=== PATIENT | female | born 1995 | race Hispanic/Latino ===

== ENCOUNTER 2021-03-20 09:20 | Outpatient (CLI) | payer OTHER, SELFPAY ==
[2021-03-20 10:49] LABS: Hematocrit 34.2 % (37.0-47.0); Hemoglobin 11.2 g/dL (12.0-15.0); Mean Corpuscular HGB Conc 32.7 g/dl (32-36); Mean Corpuscular Hemoglobin 28.2 pg (26-34); Mean Corpuscular Volume 86.1 fl (80-100); Mean Platelet Volume 9.2 fl (7.4-10.4); Platelet Count Result 184 k/mm3 (150-375); Red Blood Count 3.97 M/mm3 (4.2-5.4); Red Cell Distribution Width 12.7 % (11.5-14.5); White Blood Count 8.6 K/mm3 (4.5-10.0)
[2021-03-20 11:11] LABS: Glucose 1 Hour PP 50gm Dose 134 mg/dL
[2021-03-20 12:01] LABS: HIV 1/2 Ab P24 Ag Result Negative (Negative)
== END 2021-03-20 09:21 | disposition home or self-care (01) ==
PROVIDERS: PCP Family Medicine; Visit Provider Obstetrics & Gynecology
DX: Z34.02 Encounter for supervision of normal first pregnancy, second trimester (principal)
CPT/HCPCS: 36415; 82947; 85027; 86703; G0432

== ENCOUNTER 2021-05-18 11:31 | Outpatient (RCR) | payer OTHER, SELFPAY ==
--- NOTE | ~2021-05-18 | US_ITS ---
EXAMINATION: US OB limited w BPP DATE: 05/18/2021 12:48 INDICATION: Decreased movement during third trimester TECHNIQUE: Real-time pelvic ultrasound was performed. The interpreting radiologist was not present fo r the study. COMPARISON: None. FINDINGS: There is a single living fetus in vertex presentation. The placenta is posterior. heart rate is 127 beats per minute (bpm). The amniotic fluid index is 9.5 cm which is normal (normal range: 7.3 cm to 23.9 cm). Biophysical profile performed by the technologist: breathing (30 sec sustained breathing in 30 minutes): 2 out of 2 movement (3 gross body movements in 30 minutes): 2 out of 2 tone (one episode of gkthjsb-oazastqbz-bpbcthp limb movement): 2 out of 2 Amniotic fluid pocket (2 cm): 2 out of 2 Total score: 8 out of 8 IMPRESSION: 1. Single living fetus in vertex presentation. 2. Biophysical profile 8 out of 8. Reviewed, dictated and finalized at location B.
[2021-05-18 13:31] VITALS: BP 94/60; PULSE 80
== END 2021-06-05 07:53 | disposition home or self-care (01) ==
LOC: ANHOBOP 11:31
PROVIDERS: PCP Family Medicine; Visit Provider Obstetrics & Gynecology
DX: O36.8130 Decreased fetal movements, third trimester, not applicable or unspecified (principal); Z3A.38 38 weeks gestation of pregnancy
CPT/HCPCS: 59025; 76815; 76819

== ENCOUNTER 2021-06-04 16:00 | Inpatient (IN) | payer OTHER, SELFPAY ==
[2021-06-04] VITALS (9 sets, daily range): BP systolic 100–118; BP diastolic 63–74; PULSE 68–96; TEMP 36.6–37.1; BMI 29.1
[2021-06-04 16:45] LABS: Basophils Percent Auto 0.3 % (0.2-1.2); Eosinophils Percent Auto 0.2 % (0-4.4); Hematocrit 36.3 % (37.0-47.0); Hemoglobin 12.1 g/dL (12.0-15.0); Immature Granulocyte Absolute 0.04 K/mm3 (0.00-0.031); Immature Granulocyte Percent A 0.5 % (0-0.5); Lymphocytes Absolute Auto 1.92 K/mm3 (0.9-3.2); Lymphocytes Percent Auto 21.7 % (18.3-44.2); Mean Corpuscular HGB Conc 33.3 g/dl (32-36); Mean Corpuscular Hemoglobin 27.8 pg (26-34); Mean Corpuscular Volume 83.4 fl (80-100); Mean Platelet Volume 10.3 fl (7.4-10.4); Monocytes Absolute Auto 0.6 K/mm3 (0.1-0.6); Neutrophils Absolute Auto 6.2 K/mm3 (1.3-6.7); Neutrophils Percent Auto 70.3 % (45.5-73.1); Platelet Count Result 227 k/mm3 (150-375); Red Blood Count 4.35 M/mm3 (4.2-5.4); Red Cell Distribution Width 13.1 % (11.5-14.5); White Blood Count 8.8 K/mm3 (4.5-10.0)
[2021-06-04] MEDS: LACTATED RINGERS 1,000 ML 125 ML IV CONT (16:49)
[2021-06-04] MEDS: AMPICILLIN 2 GM/NS 100 ML 2 GM/100 ML BAG IVPB (16:52)
[2021-06-04] MEDS: DINOPROSTONE 10 MG VAG INSERT VAGINAL (17:05)
--- NOTE | 2021-06-04 17:10 | LDADM ---
This patient, Cris Wong, was admitted to Labor/Delivery/Recovery 108 on 06/04/21 at 16:00. Plans for labor, pain management and were discussed with patient. Patient/family oriented to hospital policies and general routines including ID bracelet, bed and alarms, visiting hours, pain management, procedures, bathroom and other care routines, personal items, smoking policy, room service/diet and guest tray routines, security routines, and visiting hours. Patient/Family are encouraged to report perceived risks to care and to ask questions if they do not understand what they are told or what they should do. See OBIX for further documentation.
[2021-06-04] MEDS: AMPICILLIN 1 GM/NS 50 ML 1 GM/50 ML BAG IVPB (20:49)
--- NOTE | 2021-06-04 21:19 | PM.IMHP ---
H&P: HPI History of Present Illness Date/Time: 06/04/21 21:10 Cris is a 25yo @ 40.6wks (RADHA 05/29/21) who presents for induction of labor. She reports good movement. Irregular contractions/back pains. No vaginal bleeding or leakage of fluid. She has had regular care. Her is complicated by: - GBS positive - Mild iron def anemia on iron daily Chief Complaint: induction of labor Review of Systems Review of Systems: All systems reviewed & are unremarkable except as noted in HPI and below (HPI) [facility]LY [facility] Family History Family History Mother Patient's mother is in good health Father Family history of diabetes mellitus in first degree relative Patient's father is in good health Hypertension Fatty liver Gout Other Diabetes mellitus Grandparent Dementia Social History Social History Years smoked: 1 Smoking status: Former smoker Second hand tobacco smoke exposure: No Smoking end date: 10/07/18 Alcohol intake: current Drinks per week: 4 Substance use: never Substance use type: does not use Spiritual care concerns: No Meds Home Medications and Allergies Home Medications Medication Instructions Recorded Confirmed Type PNV cmb#95-ferrous fumarate-FA 1 tablet PO DAILY 06/04/21 06/04/21 History [] doxylamine succinate [Unisom 25 mg PO HS 06/04/21 06/04/21 History (doxylamine)] pyridoxine (vitamin B6) [Vitamin 25 mg PO DAILY 06/04/21 06/04/21 History B-6] Allergies Allergy/AdvReac Type Severity Reaction Status Date / Time No Known Allergies Allergy Verified 05/17/21 14:37 Vital Signs Vital Signs - 24 hr 06/04/21 16:24 06/04/21 16:45 06/04/21 17:01 Temperature 37.1 C Pulse Rate 93 96 Blood Pressure 117/69 118/74 06/04/21 17:30 06/04/21 18:00 06/04/21 18:30 Temperature Pulse Rate 74 76 68 Blood Pressure 109/63 101/68 103/68 06/04/21 19:00 06/04/21 20:50 Temperature 36.6 C Pulse Rate 69 Blood Pressure 112/65 Exam Const: General: cooperative, healthy appearing, comfortable and no acute distress Resp: Effort & Inspection: normal respiratory effort and able to speak in complete sentences Cardio: Rate: regular rate GI: GI Palp: No abdominal tenderness and Yes Soft to palpation : Other: FHT's: 130's/mod filemon/ + accels/ no decels - cat 1 TOCO: irregular ctx's Cervix: 60/-2 Membranes: intact Presentation: cephalic Skin: General skin exam: normal color Neuro: General: patient oriented x3 Extrem: General: normal to inspection Psych: Appearance: grossly normal Affect: normal affect Attitude: cooperative H&P: Results Labs Labs: Short CBC 06/04/21 Range/Units 16:16 WBC 8.8 (4.5-10.0) K/mm3 Hgb 12.1 (12.0-15.0) g/dL Hct 36.3 L (37.0-47.0) % Plt Count 227 (150-375) k/mm3 Assessment and Plan Assessment and plan (1) Encounter for induction of labor: Code(s): Z34.90 - Encounter for supervision of normal , unspecified, unspecified trimester Status: Acute (2) : Qualifiers: Weeks of gestation: 40 weeks Qualified Code(s): Z3A.40 - 40 weeks gestation of Code(s): Z34.90 - Encounter for supervision of normal , unspecified, unspecified trimester Status: Acute Additional Plan - Admit to L&D for IOL - Cervidil cervical ripening; plan for pitocin in the AM - GBS ppx - Continuous monitoring; currently reassuring - Anesthesia consult PRN pain
--- NOTE | 2021-06-04 21:19 | WPDHPUPDATE1 ---
History and Physical Update Update Date/Time: 06/04/21 21:19 History and Physical has been reviewed, including an updated exam of the patient. There are NO changes in the patient's condition. Risks, benefits, and alternatives have been discussed and questions answered. Patient agrees to proceed with procedure.
[2021-06-05] VITALS (105 sets, daily range): BP systolic 86–146; BP diastolic 49–115; PULSE 63–123; RESP 16–18; TEMP 36.6–36.9; O2SAT 91–100
[2021-06-05] MEDS: LACTATED RINGERS 1,000 ML 125 ML IV CONT (00:54)
[2021-06-05] MEDS: AMPICILLIN 1 GM/NS 50 ML 1 GM/50 ML BAG IVPB ×2 (00:55→06:31)
[2021-06-05] MEDS: fentaNYL CITRATE INJ (*CRX) 100 MCG/2 ML VIAL 50 MCG IV PUSH ×2 (04:06→05:37)
--- NOTE | 2021-06-05 05:33 | WPDANESEPP ---
Anes - Eval Pre Procedure Procedure: Labor epidural Date/Time: 06/05/21 05:33 Surgeon: Jean Preop Diagnosis: Abd pain with contractions Pre Op Diagnosis: IOL Patient Data Age: 25 Gender: F Height: 1.55 m Weight: 70 kg Last Vital Signs Temp 98 F 06/05/21 00:56 Pulse 81 06/05/21 05:30 BP 123/81 06/05/21 05:30 Allergies Allergy/AdvReac Type Severity Reaction Status Date / Time No Known Allergies Allergy Verified 05/17/21 14:37 Home Medications Medication Instructions Recorded Confirmed Type PNV cmb#95-ferrous fumarate-FA 1 tablet PO DAILY 06/04/21 06/04/21 History [] doxylamine succinate [Unisom 25 mg PO HS 06/04/21 06/04/21 History (doxylamine)] pyridoxine (vitamin B6) [Vitamin 25 mg PO DAILY 06/04/21 06/04/21 History B-6] Laboratory Tests 06/04/21 06/04/21 06/04/21 16:16 16:16 16:16 WBC 8.8 K/mm3 K/mm3 (4.5-10.0) RBC 4.35 M/mm3 M/mm3 (4.2-5.4) Hgb 12.1 g/dL g/dL (12.0-15.0) Hct 36.3 % L % (37.0-47.0) MCV 83.4 fl fl (80-100) MCH 27.8 pg pg (26-34) MCHC 33.3 g/dl g/dl (32-36) RDW 13.1 % % (11.5-14.5) Plt Count 227 k/mm3 k/mm3 (150-375) MPV 10.3 fl fl (7.4-10.4) Immature Gran % (Auto) 0.5 % % (0-0.5) Neut % (Auto) 70.3 % % (45.5-73.1) Lymph % (Auto) 21.7 % % (18.3-44.2) Sebastian % (Auto) 7.0 % % (2.6-8.5) Eos % (Auto) 0.2 % % (0-4.4) Baso % (Auto) 0.3 % % (0.2-1.2) Lymph # (Auto) 1.92 K/mm3 K/mm3 (0.9-3.2) Sebastian # (Auto) 0.6 K/mm3 K/mm3 (0.1-0.6) Eos # (Auto) 0.0 K/mm3 K/mm3 (0-0.3) Baso # (Auto) 0.0 K/mm3 K/mm3 (0.0-0.1) Abs Immat Gran (auto) 0.04 K/mm3 H K/mm3 (0.00-0.031) Absolute Neuts (auto) 6.2 K/mm3 K/mm3 (1.3-6.7) Absolute Nucleated RBC 0.0 K/mm3 K/mm3 (0.0-0.012) Nucleated RBC % 0.0 % % (0.0-0.2) RPR Pending Blood Type O Positive Antibody Screen Negative Patient hx anesthesia problems: none Family hx anesthesia problems: none PMFSH Past Medical History Medical History Diverticulosis History of smoking Over weight Family History Family History Mother Patient's mother is in good health Father Family history of diabetes mellitus in first degree relative Patient's father is in good health Hypertension Fatty liver Gout Other Diabetes mellitus Grandparent Dementia Social History Social History Years smoked: 1 Smoking status: Former smoker Second hand tobacco smoke exposure: No Smoking end date: 10/07/18 Alcohol intake: current Drinks per week: 4 Substance use: never Substance use type: does not use Spiritual care concerns: No Exam Day of Procedure 06/05/21 05:33 Patient weight: overweight Airway: Mallampati scale class II Neurological: alert and oriented
[2021-06-05] MEDS: OXYTOCIN 30 UNITS/NS 500 ML 30 UNITS/500 ML BAG 6 UNITS IV CONT (06:31)
--- NOTE | 2021-06-05 06:49 | PM.OBPNLAB ---
Pain Control Date/time seen: 06/05/21 06:48 Pain control: epidural Pelvic Exam Dilation (cm): 5 Effacement (%): 80 station: -1 Amniotic membrane status: Ruptured (clear; AROM [id number]) Contractions Monitor mode: External Contraction frequency: 2 Contraction pattern: Regular Status status: Category l Assessment and Plan Pitocin rate (mU/min): 2 Assessment: induction ongoing Plan: continuous present management Comments: - GBS ppx
[2021-06-05 09:57] LABS: Rapid Plasma Reagin Non-Reactive (NonReactive)
--- NOTE | 2021-06-05 10:08 | P.PCNOB_ITS ---
OB - Delivery Note Procedure Delivery date: 06/05/21 events: Labor Induction Induction method: per cervidil protocol Delivery augmentation: rupture of membranes and pitocin Delivery monitor: external FHT and external uterine Route of delivery: Laceration Description: Perineal - 2nd Degree Delivery repair: vicryl Specimen: No Quantitative Blood Loss (ml): 250 Anesthesia type: Epidural Disposition: floor [place] Baby Date of : 06/05/21 Time of : 09:50 Weeks of gestation at delivery: 41 gender: Male Weight (pounds): 6 Weight (ounces): 2 presentation: vertex position: Right Occiput Anterior Placenta delivery description: Expressed cord vessel description: 3 Vessels, Nuchal Cord, Loose and Reduced score one minute: 9 score five minutes: 9 Narrative: Cris rapidly progressed to complete dilation with strong desire to push. She pushed with good maternal effort for approximately 20 minutes. She delivered the head over intact perineum. A loose nuchal cord was palpated and reduced. She easily delivered the 's shoulders and body without complications. The infant was immediately placed skin to skin. He had spontaneous cry. The umbilical cord was delayed, but then clamped and cut. With Pitocin running and gentle downward traction on the cord, the placenta delivered without complications. Bimanual massage was performed and good fundal tone was noted with minimal bleeding. The patient was examined and a second- degree perineal laceration was noted. The second-degree laceration was repaired in the normal fashion using 2-0 Vicryl. Good hemostasis and fundal tone were noted. Sponge, lap, instrument, needle counts were correct at the end of the procedure. Mom and baby were left bonding in the birthing suite in stable condition.
[2021-06-05] MEDS: OXYTOCIN 30 UNITS/NS 500 ML 30 UNITS/500 ML BAG 125 UNITS IV CONT (10:27)
[2021-06-05] MEDS: BENZOCAINE 20% AER SPR (*SP) 56 GM CAN 1 SPRAY TOPICAL (12:21)
[2021-06-05] MEDS: WITCH HAZEL 40 PADS 1 PAD TOPICAL (12:21)
--- NOTE | 2021-06-05 13:45 | PC.NURSE ---
Mother called out for assist with feeding, reporting eagerly fed for first feeding. Mother reports tenderness with feeding more to left than right. Mother has had breast augmentation surgery for larger breasts with the periareolar surgery. Discussed how this may impact milk transfer. Mother has issues with healing on left breast, scar tissue below areola and area is misshaped. Mother states she plan is to breast and bottle feed. Suggested mother breastfeed on right and bottle feed if not satisfied and when infant is to feed on left. Infant is able to freely thrust tongue past gum ridge and flange both lips. Skin is intact on both nipples, no redness and bruising noted. Reviewed infant feeding cues, frequencies, duration of feedings, feeding elimination flow sheet, and signs of adequate intake. Demonstrated stimulation techniques to wake infant for feeding. Assisted with to breast. Reviewed positioning/alignment in cross cradle, holding breast in ?U? hold and guided asymmetrical latch on. Discussed rational for each. able to latch correctly. Reviewed signs of a correct latch, effective nursing and suck swallow ratio. nursed eagerly, with steady draws and occasional swallowing noted. Reviewed the difference of effective vs ineffective nursing. Suggested mother stimulate while feeding to increase stimulation, increase intake and to assist with maintaining deep latch. Infant would slip to shallow latch, mother reports tenderness. Demonstrated how to adjust latch more deeply while feeding. Mother reports she can feel change in latch and has no tenderness. Nipple care reviewed of lanolin after feedings, warm compresses as needed.
--- NOTE | 2021-06-05 14:01 | PC.NURSE ---
1224 Pt admitted to room 286 per wheelchair from labor and delivery after spontaneous vaginal delivery of viable male infant at [address] Pena. Mother is a and is choosing to breast feed . /FOB present; couple oriented to room, staffing and procedures; admission folder reviewed, including Mother Baby Guide. Pt's VSS and assessment WNL.
[2021-06-05] MEDS: IBUPROFEN 600 MG TABLET PO ×2 (15:37→23:55)
[2021-06-05] MEDS: TETANUS,DIPHTHERIA,AC PERTUSSIS ADULT (0.5 ML) BOOSTRIX IM (15:39)
[2021-06-05] MEDS: LANOLIN (LANSINOH) 7.5 GM CREAM 1 APPLIC TOPICAL (15:42)
--- NOTE | 2021-06-05 19:25 | PC.NURSE ---
1700 nurse present to assist with baby's feeding at this time; mother asked if she could pump and bottle feed now. She reports severe pain in her entire R breast during the last feeding, and desires to now, not put infant to breast, only pump and bottle feed; nurse agreed. Mother will be set up with breast pump; she and FOB shown paced bottle feeding, and fed infant Enfamil without problems.
[2021-06-05] MEDS: ACETAMINOPHEN 325 MG TABLET 650 MG PO (20:52)
[2021-06-06] VITALS: BP 99/66; PULSE 86; RESP 16; TEMP 36.4; O2SAT 99
[2021-06-06 04:00] VITALS: BP 102/67; PULSE 64; RESP 16; TEMP 36.4; O2SAT 99
[2021-06-06 04:50] LABS: Hematocrit 31.9 % (37.0-47.0); Hemoglobin 10.4 g/dL (12.0-15.0)
[2021-06-06 07:30] VITALS: BP 111/66; PULSE 70; RESP 18; TEMP 36.3
--- NOTE | 2021-06-06 10:08 | WPDANLDPN2 ---
Anes-Prog Note L&D Date/Time: 06/06/21 10:08 Comfortable throughout: labor and delivery Neuraxial method: epidural Epidural/Spinal procedure site: clean & non-tender Neuro status: Neuro function grossly intact. Cardiovascular status: normal Respiratory status: normal Airway patency: baseline Mental status: baseline Post-Op hydration status: normal Vital Signs: Last Vital Signs Temp 36.3 C L 06/06/21 07:30 Pulse 70 06/06/21 07:30 Resp 18 06/06/21 07:30 BP 111/66 06/06/21 07:30 Pulse Ox 99 06/06/21 04:00 Pain score (VAS): 0 Post-procedural complaints: none Patient feedback: Patient satisfied with anesthetic care.
--- NOTE | 2021-06-06 12:30 | PM.OBPNVD ---
OB - PN: Subj Subjective Date/time seen: 06/06/21 07:30 PPD#1 Cris reports doing well today. She reports her pain is tolerable with the PO meds. 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 She has tolerated regular diet. She has voided and passed gas. She as ambulated w/o symptoms of anemia. She is pumping/bottle feeding. She would like her son circumcised. She denies fever, chills, CP, SOB, [place], vision changes, palpitations, dizziness, N/v. She would like to go home tomorrow. OB - PN: Obj Data Labs CBC & Chem 7: 06/06/21 04:21 Labs: Laboratory Results - last 24 hr 06/06/21 04:21 Hgb 10.4 L Hct 31.9 L OB - PN A/P Assessment and Plan (1) Spontaneous vaginal delivery: Code(s): O80 - Encounter for full-term uncomplicated delivery Status: Acute Plan day: 1 Plan: routine care and discharge home (tomorrow AM) Comments: - pelvic rest x 4wks - take meds as prescribed - ER return precautions discussed: fever, n/v/abd pain, bleeding, htn - f/u in 4wks. Time Spent With Patient Time: Total time spent is greater than 50% in coordination of care (as documented) at patient's floor/unit and/or counseling patient: Review of Systems Review of Systems: All systems reviewed & are unremarkable except as noted in HPI and below (HPI) Exam Const: General: cooperative, healthy appearing, comfortable and no acute distress Resp: Effort & Inspection: normal respiratory effort and able to speak in complete sentences Auscultation: clear to auscultation bilaterally Cardio: Rate: regular rate GI: Inspection: normal to inspection and non-distended GI Palp: No abdominal tenderness and Yes Soft to palpation Auscultation: normal bowel sounds : Other: fundus firm below umbilicus Skin: General skin exam: normal color Neuro: General: patient oriented x3 Extrem: General: normal to inspection Psych: Appearance: grossly normal Affect: normal affect Attitude: cooperative
[2021-06-06] MEDS: IBUPROFEN 600 MG TABLET PO ×2 (12:47→20:10)
--- NOTE | 2021-06-06 17:51 | PC.NURSE ---
Patient and FOB viewed the discharge video Mother & Baby Care, The First Two Weeks , on their IPAD. Patient was given the opportunity and encouraged to ask questions. Patient verbalized understanding of information shared and has been given the mother/baby guide for home reference.
[2021-06-06 19:11] VITALS: BP 110/72; PULSE 72; RESP 16; TEMP 36.3; O2SAT 100
[2021-06-07 08:30] VITALS: BP 98/86; PULSE 80; RESP 16; TEMP 36.6; O2SAT 100
[2021-06-07] MEDS: DOCUSATE SODIUM 100 MG CAPSULE PO (09:19)
[2021-06-07] MEDS: MULTIVIT/MIN/PREN/FOL AC/IRON TABLET 1 TAB PO (09:19)
--- NOTE | 2021-06-07 11:30 | PC.NURSE ---
Mother reports she continues to pump without difficulties or discomfort. Mother has a double electric pump for home use and plans to pump and bottle feed formula EBM of as much as desires. Reviewed breast pump care and usage, pumping schedule, nipple care, and collection and storage of breast milk. Encouraged [id number], breast massage and manual expression to stimulate supply. Pumping log provided and reviewed. Assessed patient for correct flange size, placement and draw. Patient verbalizes and demonstrates understanding of instructions.
[2021-06-09 10:57] VITALS: BP 105/74; PULSE 88; RESP 16; TEMP 37.1; O2SAT 99
--- NOTE | 2021-06-20 16:07 | PM.OBDSVD ---
DS: Admitting Diagnosis Discharge Date 06/07/21 Admitting Diagnosis induction of labor DS: Discharge Diagnosis Discharge Diagnosis (1) Encounter for induction of labor: Code(s): Z34.90 - Encounter for supervision of normal , unspecified, unspecified trimester Status: Acute (2) : Qualifiers: Weeks of gestation: 40 weeks Qualified Code(s): Z3A.40 - 40 weeks gestation of Code(s): Z34.90 - Encounter for supervision of normal , unspecified, unspecified trimester Status: Acute (3) Spontaneous vaginal delivery: Code(s): O80 - Encounter for full-term uncomplicated delivery Status: Acute OB - DS: Summary OB Procedures : Ultrasound OB Procedures Intrapartum: Spontaneous Vag Delivery OB Procedures: : None Peripartum Data Delivery Method: Natural Vaginal Laceration Description: Perineal - 2nd Degree complications: none 1: Gender: Male Disposition of : home Status at Discharge Functional status at discharge: independent ambulation Overall status at discharge: patient is back to baseline Time Spent with Patient Time attestation: Total time spent providing and/or coordinating discharge services: Exam Const: General: cooperative, healthy appearing, comfortable and no acute distress Resp: Effort & Inspection: normal respiratory effort Auscultation: clear to auscultation bilaterally Cardio: Rate: regular rate GI: Inspection: normal to inspection and non-distended GI Palp: No abdominal tenderness and Yes Soft to palpation Auscultation: normal bowel sounds : Other: fundus firm Skin: General skin exam: normal color Neuro: General: patient oriented x3 Extrem: General: normal to inspection Psych: Appearance: grossly normal Affect: normal affect Attitude: cooperative Discharge Plan Discharge Attending physician on discharge: Mary Carmen Pena Discharging Clinician: Mary Carmen Pena Anticipated Discharge Date/Time: 06/07/21 12:00 Patient Disposition: Home, Self-Care Activity: pelvic rest Diet: regular Discharge Instructions: Education: Mom and Baby Guide Given to: Mother Follow-Up: Call your delivering provider's office for an appointment to be seen in: 4 Weeks Mom and baby should come to the [facility] for the follow-up appointment. Appointment Date/Time: Wednesday, June 09, 2021 at 11:00 a.m. What to expect at your follow-up visit: Blood Pressure Check Physical Assessment Call [phone] if you are unable to keep your appointment time. BREAST CARE: * Wear a snug supportive bra. * For engorgement discomfort: Breast Feeding: * Apply warm moist washcloths * Express milk as needed to relieve engorgement * Wear loose clothing Bottle Feeding: * May apply ice packs * For sore nipples: * Identify correct latch-on * Apply warm moist washcloths before and after nursing * Air dry nipples after nursing * May apply Lansinoh cream to nipples EPISIOTOMY/PERINEAL CARE: * Until bleeding stops, use your jennifer bottle after urinating * Change your pad frequently throughout the day * You may take sitz baths several times a day (fill your bathtub with warm water and soak for 20 minutes.) Do NOT bathe in the water * No tub baths until seen by your physician - You may shower ACTIVITY: * Rest as much as possible. * Do not exercise or lift anything heavier than your baby (such as laundry or other children.) * Avoid stairs or driving as much as possible. * Do not put anything into the vagina. No douching, tampons, or sexual activity until seen by physician. NOTIFY PHYSICIAN IF YOU HAVE ANY QUESTIONS OR IF ANY OF THE FOLLOWING SYMPTOMS OCCUR: * If your perineum becomes red, swollen, or more painful than what you have experienced in the hosp
== END 2021-06-07 13:25 | disposition home or self-care (01) | DRG 807 ==
LOC: ANHLDR 16:03 → ANHOB2 06-05 12:55
PROVIDERS: Admitting Provider Obstetrics & Gynecology; PCP Family Medicine; Visit Provider Obstetrics & Gynecology
DX: O99.824 Streptococcus B carrier state complicating childbirth (principal); Z37.0 Single live birth; Z3A.41 41 weeks gestation of pregnancy; O70.1 Second degree perineal laceration during delivery; O69.81X0 Labor and delivery complicated by cord around neck, without compression, not applicable or unspecified; O99.02 Anemia complicating childbirth; D50.9 Iron deficiency anemia, unspecified; O99.62 Diseases of the digestive system complicating childbirth; K57.90 Diverticulosis of intestine, part unspecified, without perforation or abscess without bleeding
CPT/HCPCS: 36415; 85014; 85018; 85025; 86592; 86850; 86900; 86901; 90715; A9270; J0290; J2590; J2795; J3010; J7120

== ENCOUNTER 2023-08-12 09:39 | Outpatient (CLI) | payer MEDICAID, SELFPAY ==
[2023-08-12 10:17] LABS: Basophils Percent Auto 0.5 % (0.2-1.2); Eosinophils Percent Auto 0.3 % (0-4.4); Hematocrit 37.5 % (37.0-47.0); Hemoglobin 12.3 g/dL (12.0-15.0); Immature Granulocyte Absolute 0.02 K/mm3 (0.00-0.031); Immature Granulocyte Percent A 0.3 % (0-0.5); Lymphocytes Absolute Auto 2.17 K/mm3 (0.9-3.2); Mean Corpuscular HGB Conc 32.8 g/dl (32-36); Mean Corpuscular Hemoglobin 27.6 pg (26-34); Mean Corpuscular Volume 84.1 fl (80-100); Mean Platelet Volume 9.7 fl (7.4-10.4); Monocytes Absolute Auto 0.4 K/mm3 (0.1-0.6); Monocytes Percent Auto 5.8 % (2.6-8.5); Neutrophils Percent Auto 60.1 % (45.5-73.1); Platelet Count Result 192 k/mm3 (150-375); Red Blood Count 4.46 M/mm3 (4.2-5.4); Red Cell Distribution Width 12.4 % (11.5-14.5); White Blood Count 6.6 K/mm3 (4.5-10.0)
[2023-08-12 11:05] LABS: Hepatitis B Surface Antigen Negative (Negative); Rubella IgG Antibody 9.1 IU/ML
[2023-08-12 11:07] LABS: HIV 1/2 Ab P24 Ag Result Negative (Negative)
[2023-08-13 14:31] LABS: Rapid Plasma Reagin Non-Reactive (NonReactive)
== END 2023-08-12 09:40 | disposition home or self-care (01) ==
LOC: ANHLAB 09:40
PROVIDERS: PCP Family Medicine; Visit Provider Student in an Organized Health Care Education/Training Program
DX: N94.89 Other specified conditions associated with female genital organs and menstrual cycle (principal)
CPT/HCPCS: 36415; 84702; 85025; 86592; 86644; 86703; 86747; 86762; 86787; 86850; 86900; 86901; 87086; 87088; 87340; G0432

== ENCOUNTER 2023-09-25 07:55 | Outpatient (CLI) | payer OTHER, SELFPAY ==
--- NOTE | ~2023-09-25 | US_ITS ---
EXAMINATION: US OB /maternal detail DATE: 09/25/2023 09:01 INDICATION: Second trimester anatomic survey TECHNIQUE: Real-time ultrasound of the pelvis was performed. COMPARISON: None. FINDINGS: There is a single living fetus in variable presentation. The placenta is posterior and 5.2 cm from th e internal cervical os. heart rate is 145 beats per minute (bpm). cardiac activity and f etal movement are noted. The amniotic fluid index is subjectively normal. The following anatomy was identified as normal: 4 chamber heart 3 vessel cord cord insertion kidneys urinary bladder stomach spine diaphragm ventricles cisterna magna cerebellum The following biometric data were obtained: Biparietal diameter (BPD): 4.8 cm; head circumference (HC): 18.2 cm; abdominal circumference (AC): 15 cm; femur length (FL): 3.3 cm. These measurements are concordant. Estimated weight is 344 g +/- 51 g, which correlates with the 19th percentile when 02/06/2024 is used as estimated date of delivery. As single measurements, these parameters are each equal to the following estimated gestational ages w ith ranges of +/- 2 standard deviations: BPD: 20 weeks 3 days +/- 1 weeks 5 days. HC: 20 weeks 4 days +/- 1 weeks 3 days. AC: 20 weeks 2 days +/- 2 weeks 0 days. FL: 20 weeks 2 days +/- 1 weeks 6 days. estimated gestational age based solely on measurements from this exam is 20 weeks 3 days +/- 1 weeks 3 days. IMPRESSION: 1. Single living fetus in variable presentation. 2. Estimated weight is 344 g +/- 51 g, which correlates with the 19th percentile when 02/06/2024 is used as estimated date of delivery. Reviewed, dictated and finalized at location B. WIRER IMPRESSION: 1. Single living fetus in variable presentation. 2. Estimated weight is 344 g +/- 51 g, which correlates with the 19th per centile when 02/06/2024 is used as estimated date of delivery.
== END 2023-09-25 07:56 | disposition home or self-care (01) ==
PROVIDERS: PCP Family Medicine; Visit Provider Obstetrics & Gynecology
DX: Z34.90 Encounter for supervision of normal pregnancy, unspecified, unspecified trimester (principal)
CPT/HCPCS: 76805

== ENCOUNTER 2023-11-08 13:40 | Outpatient (CLI) | payer OTHER, SELFPAY ==
[2023-11-08 14:53] LABS: Basophils Percent Auto 0.3 % (0.2-1.2); Eosinophils Percent Auto 0.6 % (0-4.4); Hematocrit 34.7 % (37.0-47.0); Hemoglobin 10.9 g/dL (12.0-15.0); Immature Granulocyte Absolute 0.03 K/mm3 (0.00-0.031); Immature Granulocyte Percent A 0.5 % (0-0.5); Mean Corpuscular HGB Conc 31.4 g/dl (32-36); Mean Corpuscular Hemoglobin 27.8 pg (26-34); Mean Corpuscular Volume 88.5 fl (80-100); Mean Platelet Volume 9.5 fl (7.4-10.4); Monocytes Absolute Auto 0.4 K/mm3 (0.1-0.6); Monocytes Percent Auto 6.1 % (2.6-8.5); Neutrophils Absolute Auto 4.3 K/mm3 (1.3-6.7); Neutrophils Percent Auto 67.5 % (45.5-73.1); Platelet Count Result 209 k/mm3 (150-375); Red Blood Count 3.92 M/mm3 (4.2-5.4); Red Cell Distribution Width 13.2 % (11.5-14.5); White Blood Count 6.4 K/mm3 (4.5-10.0)
[2023-11-08 15:33] LABS: Glucose 1 Hour PP 50gm Dose 127 mg/dL
[2023-11-08 16:57] LABS: HIV 1/2 Ab P24 Ag Result Negative (Negative)
== END 2023-11-08 13:41 | disposition home or self-care (01) ==
LOC: ANHLAB 13:41
PROVIDERS: PCP Family Medicine; Visit Provider Obstetrics & Gynecology
DX: Z34.90 Encounter for supervision of normal pregnancy, unspecified, unspecified trimester (principal)
CPT/HCPCS: 36415; 82947; 85025; 86703; G0432

== ENCOUNTER 2023-12-07 09:47 | Outpatient (CLI) | payer OTHER, SELFPAY ==
--- NOTE | ~2023-12-07 | US_ITS ---
EXAMINATION: US OB follow up DATE: 12/07/2023 11:47 INDICATION: 40 weeks gestation of . TECHNIQUE: Real-time ultrasound of the pelvis was performed. COMPARISON: Ultrasound 09/25/2023, 08/14/2023 FINDINGS: There is a single living fetus in breech presentation. The placenta is posterior and fundal. h eart rate is 141 beats per minute (bpm). The amniotic fluid index is 15.0 cm, which is normal. The following biometric data were obtained: Biparietal diameter (BPD): 7.9 cm; head circumference (HC): 28.4 cm; abdominal circumference (AC): 26 .9 cm; femur length (FL): 5.8 cm. These measurements are concordant. Estimated weight is 1665 g +/- 250 g, which correlates with the 27th percentile when 02/06/24 is used as estimated date of delivery. As single measurements, these parameters are each equal to the following estimated gestational ages: BPD: 31 weeks 5 days. HC: 31 weeks 2 days. AC: 31 weeks 0 days. FL: 30 weeks 4 days. estimated gestational age based solely on measurements from this exam is 31 weeks 1 days +/- 2 weeks 1 days. IMPRESSION: 1. Single living fetus in breech presentation. 2. Estimated weight is 1665 g +/- 250 g, which correlates with the 27th percentile when 02/06/24 is used as estimated date of delivery. Reviewed, dictated and finalized at location A. 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
== END 2023-12-07 09:48 | disposition home or self-care (01) ==
PROVIDERS: PCP Family Medicine; Visit Provider Obstetrics & Gynecology
DX: O36.5990 Maternal care for other known or suspected poor fetal growth, unspecified trimester, not applicable or unspecified (principal); Z3A.40 40 weeks gestation of pregnancy
CPT/HCPCS: 76816

== ENCOUNTER 2024-01-06 10:20 | Outpatient (CLI) | payer OTHER, SELFPAY ==
--- NOTE | ~2024-01-06 | US_ITS ---
EXAMINATION: US OB follow up DATE: 01/06/2024 12:42 INDICATION: Third trimester of . TECHNIQUE: Real-time ultrasound of the pelvis was performed. COMPARISON: Ultrasound 12/07/2023, 08/14/2023 FINDINGS: There is a single living fetus in vertex presentation. The placenta is posterior and fundal. h eart rate is 145 beats per minute (bpm). The amniotic fluid volume is subjectively normal. The following biometric data were obtained: Biparietal diameter (BPD): 8.5 cm; head circumference (HC): 32.9 cm; abdominal circumference (AC): 31 .3 cm; femur length (FL): 6.5 cm. These measurements are concordant. Estimated weight is 2521 g +/- 378 g, which correlates with the 28th percentile when 02/06/24 is used as estimated date of delivery. As single measurements, these parameters are each equal to the following estimated gestational ages: BPD: 34 weeks 1 days. HC: 37 weeks 3 days. AC: 35 weeks 1 days. FL: 33 weeks 2 days. estimated gestational age based solely on measurements from this exam is 35 weeks 0 days +/- 2 weeks 3 days. IMPRESSION: 1. Single living fetus in vertex presentation. 2. Estimated weight is 2521 g +/- 378 g, which correlates with the 28th percentile when 02/06/24 is used as estimated date of delivery. Reviewed, dictated and finalized at location A.
== END 2024-01-06 10:21 | disposition home or self-care (01) ==
PROVIDERS: PCP Family Medicine; Visit Provider Obstetrics & Gynecology
DX: Z34.93 Encounter for supervision of normal pregnancy, unspecified, third trimester (principal); Z3A.40 40 weeks gestation of pregnancy
CPT/HCPCS: 76816

== ENCOUNTER 2024-02-02 17:09 | Inpatient (IN) | payer OTHER, SELFPAY ==
[2024-02-02] VITALS (54 sets, daily range): BP systolic 93–117; BP diastolic 60–81; PULSE 61–90; O2SAT 93–99; BMI 25.8
[2024-02-02 18:08] LABS: Basophils Percent Auto 0.4 % (0.2-1.2); Eosinophils Percent Auto 0.3 % (0-4.4); Hematocrit 36.7 % (37.0-47.0); Hemoglobin 12.2 g/dL (12.0-15.0); Immature Granulocyte Absolute 0.04 K/mm3 (0.00-0.031); Immature Granulocyte Percent A 0.5 % (0-0.5); Lymphocytes Absolute Auto 2.36 K/mm3 (0.9-3.2); Lymphocytes Percent Auto 31.6 % (18.3-44.2); Mean Corpuscular HGB Conc 33.2 g/dl (32-36); Mean Corpuscular Hemoglobin 28.4 pg (26-34); Mean Corpuscular Volume 85.5 fl (80-100); Mean Platelet Volume 10.6 fl (7.4-10.4); Monocytes Absolute Auto 0.5 K/mm3 (0.1-0.6); Monocytes Percent Auto 6.2 % (2.6-8.5); Neutrophils Absolute Auto 4.6 K/mm3 (1.3-6.7); Platelet Count Result 173 k/mm3 (150-375); Red Blood Count 4.29 M/mm3 (4.2-5.4); Red Cell Distribution Width 13.2 % (11.5-14.5); White Blood Count 7.5 K/mm3 (4.5-10.0)
[2024-02-02] MEDS: DINOPROSTONE 10 MG VAG INSERT VAGINAL (18:50)
--- NOTE | 2024-02-02 19:14 | LDADM ---
This patient, Cris Wong, was admitted to Labor/Delivery/Recovery 104 on 02/02/24 at 17:09. Plans for labor, pain management and were discussed with patient. Patient/family oriented to hospital policies and general routines including ID bracelet, bed and alarms, visiting hours, pain management, procedures, bathroom and other care routines, personal items, smoking policy, room service/diet and guest tray routines, security routines, and visiting hours. Patient/Family are encouraged to report perceived risks to care and to ask questions if they do not understand what they are told or what they should do. See OBIX for further documentation.
--- NOTE | 2024-02-02 20:00 | PM.IMHP ---
H&P: HPI History of Present Illness Date/Time: 02/02/24 20:00 Chief Complaint: Induction of labor Narrative: Cris is a 28yo @ 39.3wks who presents for elective IOL. She has had regular care. She has had irregular contractions. She reports good movement. No vaginal bleeding or leakage of fluid. Her is complicated by: - Rubella non-immune Review of Systems Constitutional: Constitutional: Denies chills, Denies fever(s) and Denies headache(s) Eyes: Eyes: Denies change in vision ENT: Denies headache(s) Cardiovascular: Cardiovascular: Denies chest pain and Denies dyspnea Respiratory: Respiratory: Denies dyspnea Genitourinary: Genitourinary: Denies abnormal vaginal bleeding and Denies vaginal discharge Neurologic: Denies headache(s) Psychiatric: Psychiatric: Denies anxiety and Denies depression [facility] Past Medical History Medical History Diverticulosis History of smoking Over weight Suppression of menses Family History Family History Mother Patient's mother is in good health Father Family history of diabetes mellitus in first degree relative Patient's father is in good health Hypertension Fatty liver Gout Other Diabetes mellitus Grandparent Dementia Social History Social History Years smoked: 1 Smoking status: Former smoker Tobacco type: cigarettes Second hand tobacco smoke exposure: No Smoking end date: 10/07/18 Alcohol intake: current Drinks per week: 4 Substance use: never Substance use type: does not use Do You Feel Safe in your Home?: Yes Lack of Transportation: No Lack of Food: Never True Current Housing: I Have Housing Concerned About Future Housing: No Difficulty Paying Gas/Electric Bills: No Difficulty Paying for Meds: No Currently Unemployed: No Education: High School Diploma/GED Difficulty w/ Childcare or Family Care: No Occupation/Education: occupation Gender identity (if verbalized by the patient): Female Sexual Orientation (if Verbalized by the Patient): Straight or Heterosexual Spiritual care concerns: No Meds Home Medications and Allergies Home Medications Medication Instructions Recorded Confirmed Type vits no.126-ferrous fum 1 tablet PO DAILY 08/12/23 01/29/24 History 28 mg iron-folic acid 800 mcg tablet (Classic ) Allergies Allergy/AdvReac Type Severity Reaction Status Date / Time No Known Allergies Allergy Verified 01/29/24 11:28 Vital Signs Vital Signs - 24 hr 02/02/24 18:53 02/02/24 18:54 02/02/24 18:59 Pulse Rate 65 Blood Pressure 107/77 Pulse Oximetry 96 96 Oxygen Delivery 02/02/24 19:00 02/02/24 19:04 02/02/24 19:09 Pulse Rate 65 Blood Pressure 117/78 Pulse Oximetry 97 96 Oxygen Delivery 02/02/24 19:14 02/02/24 19:19 02/02/24 19:24 Pulse Rate Blood Pressure Pulse Oximetry 96 95 97 Oxygen Delivery 02/02/24 19:29 02/02/24 19:30 02/02/24 19:34 Pulse Rate 68 Blood Pressure 104/65 Pulse Oximetry 97 93 Oxygen Delivery 02/02/24 19:39 02/02/24 19:44 02/02/24 19:49 Pulse Rate Blood Pressure Pulse Oximetry 97 95 96 Oxygen Delivery 02/02/24 19:54 02/02/24 19:59 02/02/24 19:04 Pulse Rate Blood Pressure Pulse Oximetry 96 96 Oxygen Delivery Room Air Exam Const: General: cooperative, healthy appearing and no acute distress Nutritional Appearance: average body habitus Orientation/consciousness: patient oriented x3 Resp: Effort & Inspection: normal respiratory effort Cardio: Rate: regular rate GI: GI Palp: No abdominal tenderness : Other: FHT's: 130's/ mod filemon/ + accels/ no decels - cat 1 TOCO: irregular ctxs Cervix:2/50/-3 Membranes: intact Presentation: cephalic Ski
[2024-02-03] VITALS (93 sets, daily range): BP systolic 71–214; BP diastolic 47–186; PULSE 50–239; RESP 16–18; TEMP 36.3–37.2; O2SAT 83–100
--- NOTE | 2024-02-03 00:15 | WPDANESEPP ---
Anes - Eval Pre Procedure Procedure: Labor epidural Date/Time: 02/03/24 00:15 Surgeon: Jean Preop Diagnosis: Abdominal pain with contractions Pre Op Diagnosis: IOL Patient Data Age: 28 Gender: F Height: 1.55 m Weight: 62 kg Last Vital Signs Pulse 70 02/03/24 00:00 BP 85/47 L 02/03/24 00:00 Pulse Ox 99 02/03/24 00:12 O2 Del Method Room Air 02/02/24 19:04 Allergies Allergy/AdvReac Type Severity Reaction Status Date / Time No Known Allergies Allergy Verified 01/29/24 11:28 Home Medications Medication Instructions Recorded Confirmed Type vits no.126-ferrous fum 1 tablet PO DAILY 08/12/23 01/29/24 History 28 mg iron-folic acid 800 mcg tablet (Classic ) Laboratory Tests 02/02/24 18:02 WBC 7.5 K/mm3 (4.5-10.0) RBC 4.29 M/mm3 (4.2-5.4) Hgb 12.2 g/dL (12.0-15.0) Hct 36.7 L % (37.0-47.0) MCV 85.5 fl (80-100) MCH 28.4 pg (26-34) MCHC 33.2 g/dl (32-36) RDW 13.2 % (11.5-14.5) Plt Count 173 k/mm3 (150-375) MPV 10.6 H fl (7.4-10.4) Immature Gran % (Auto) 0.5 % (0-0.5) Neut % (Auto) 61.0 % (45.5-73.1) Lymph % (Auto) 31.6 % (18.3-44.2) [place] % (Auto) 6.2 % (2.6-8.5) Eos % (Auto) 0.3 % (0-4.4) Baso % (Auto) 0.4 % (0.2-1.2) Lymph # (Auto) 2.36 K/mm3 (0.9-3.2) [place] # (Auto) 0.5 K/mm3 (0.1-0.6) Eos # (Auto) 0.0 K/mm3 (0-0.3) Baso # (Auto) 0.0 K/mm3 (0.0-0.1) Abs Immat Gran (auto) 0.04 H K/mm3 (0.00-0.031) Absolute Neuts (auto) 4.6 K/mm3 (1.3-6.7) Absolute Nucleated RBC 0.000 K/mm3 (0.0-0.012) Nucleated RBC % 0.0 % (0.0-0.2) RPR Pending Blood Type O Positive Antibody Screen Negative : gestational age HCG: positive Patient hx anesthesia problems: none Family hx anesthesia problems: none Results Review: All pre-operative results and documents have been reviewed as part of the pre-operative evaluation. [facility] Past Medical History Medical History Diverticulosis History of smoking Over weight Suppression of menses Family History Family History Mother Patient's mother is in good health Father Family history of diabetes mellitus in first degree relative Patient's father is in good health Hypertension Fatty liver Gout Other Diabetes mellitus Grandparent Dementia Social History Social History Years smoked: 1 Smoking status: Former smoker Tobacco type: cigarettes Second hand tobacco smoke exposure: No Smoking end date: 10/07/18 Alcohol intake: current Drinks per week: 4 Substance use: never Substance use type: does not use Do You Feel Safe in your Home?: Yes Lack of Transportation: No Lack of Food: Never True Current Housing: I Have Housing Concerned About Future Housing: No Difficulty Paying Gas/Electric Bills: No Difficulty Paying for Meds: No Currently Unemployed: No Education: High School Diploma/GED Difficulty w/ Childcare or Family Care: No Occupation/Education: occupation Gender identity (if verbalized by the patient): Female Sexual Orientation (if Verbalized by the Patient): Straight or Heterosexual Spiritual care concerns: No Exam Day of Procedure 02/03/24 00:15 Patient weight: overweight Heart: regular rate and rhythm Airway: Mallampati scale class II
[2024-02-03] MEDS: LACTATED RINGERS 1,000 ML 125 ML IV CONT (02:19)
[2024-02-03] MEDS: fentaNYL CITRATE INJ (*CRX) 100 MCG/2 ML VIAL 50 MCG IV PUSH (02:23)
[2024-02-03] MEDS: OXYTOCIN 30 UNITS/NS 500 ML 30 UNITS/500 ML BAG 999 UNITS IV CONT (04:00)
--- NOTE | 2024-02-03 04:16 | P.PCNOB_ITS ---
OB - Vaginal Delivery Note Procedure Delivery date: 02/03/24 Events: Elective Induction of Labor Induction method: Per Cervidil Protocol Delivery monitor: External FHT and External Uterine Route of delivery: Laceration Description: Perineal - 2nd Degree Delivery repair: vicryl Quantitative Blood Loss (ml): 350 Anesthesia type: Epidural Disposition: Floor Complications: No immediate complications [place] Baby Date of : 02/03/24 Time of : 04:00 Weeks of gestation at delivery: 39 (.4) Infant gender: Male presentation: vertex Placenta delivery description: Expressed Cord Vessel Description: 3 Vessels, Nuchal Cord, Loose and Delayed Cord Clamping score one minute: 8 score five minutes: 9 Narrative: Cris started having significant pain and was examined and found to be 5cm and Cervidil was removed at 0220; she then requested epidural. She has spontaneous rupture of clear fluid at 0341. She then had significant urge to push and was found to be completely dilated. She pushed for approximately 5 minutes with good maternal effort. She delivered the head over intact perineum. Nuchal cord was noted but loose and delivered through. She easily delivered the infant's shoulders and body without complication. The infant was immediately placed skin to skin and had spontaneous cry. His mouth was bulb suctioned. Delayed cord clamping was performed. The umbilical cord was then doubly clamped and cut. A segment of the cord was collected for cord gases. The remaining cord blood was collected for typing. With Pitocin running and gentle downward traction on the cord, the placenta delivered without complication. Bimanual massage was performed and good uterine tone with minimal bleeding was noted. She was examined and a small second-degree perineal laceration was identified. The perineal laceration was repaired in the normal fashion using 2-0 Vicryl and good hemostasis was noted. She remained firm with minimal bleeding. Sponge, la p, instrument, and needle counts were correct at the end of the procedure. Mom and baby were left bonding in the birthing suite in a stable condition. [facility] Delivery Billing Delivery Delivery: Delivery Charge
[2024-02-03] MEDS: OXYTOCIN 30 UNITS/NS 500 ML 30 UNITS/500 ML BAG 125 UNITS IV CONT (04:38)
[2024-02-03] MEDS: BENZOCAINE 20% AER SPR (*SP) 56 GM CAN 1 SPRAY TOPICAL (06:28)
[2024-02-03] MEDS: WITCH HAZEL 40 PADS 1 PAD TOPICAL (06:28)
--- NOTE | 2024-02-03 07:52 | OBPPTRN ---
0645 Patient transferred to post room #290 via W/C. Support person present. Oriented to unit, room, information board, rooming in, admission packet and security measures. Patient verbalizes understanding.
[2024-02-03] MEDS: IBUPROFEN 600 MG TABLET PO (11:33)
[2024-02-03] MEDS: DOCUSATE SODIUM 100 MG CAPSULE PO ×2 (11:34→16:44)
[2024-02-03] MEDS: MULTIVIT/MIN/PREN/FOL AC/IRON TABLET 1 TAB PO (11:35)
--- NOTE | 2024-02-03 12:38 | PM.OBPNVD ---
OB - PN: Subj Subjective Date/time seen: 02/03/24 12:38 Narrative: PPD#0 Cris reports doing well today. Her bleeding is billet checker. Her pain is controlled. She is tolerating regular diet, voiding, passing gas, and ambulating without issues. She is breast feeding. She would like her son circumcised. They are considering wanting to go home tomorrow morning. OB - PN: Obj Data Labs 02/02/24 18:02 Labs: Laboratory Results - last 24 hr 02/02/24 18:02 WBC 7.5 RBC 4.29 Hgb 12.2 Hct 36.7 L MCV 85.5 MCH 28.4 MCHC 33.2 RDW 13.2 Plt Count 173 MPV 10.6 H Immature Gran % (Auto) 0.5 Neut % (Auto) 61.0 Lymph % (Auto) 31.6 [place] % (Auto) 6.2 Eos % (Auto) 0.3 Baso % (Auto) 0.4 Lymph # (Auto) 2.36 [place] # (Auto) 0.5 Eos # (Auto) 0.0 Baso # (Auto) 0.0 Abs Immat Gran (auto) 0.04 H Absolute Neuts (auto) 4.6 Absolute Nucleated RBC 0.000 Nucleated RBC % 0.0 Blood Type O Positive Antibody Screen Negative OB - PN A/P Assessment and Plan (1) Normal vaginal delivery: Code(s): O80 - Encounter for full-term uncomplicated delivery Status: Acute Plan day: 0 Plan: routine care Comments: - PO pain meds - Regular diet - Ambulation and hydration encouraged - Continue putting baby to breast q2-3hr - Circ performed w/o issue - Pelvic rest; take meds as prescribed - ER return precautions: fever, n/v/abd pain, bleeding, HTN Time Spent With Patient Time: Total time spent is greater than 50% in coordination of care (as documented) at patient's floor/unit and/or counseling patient: Review of Systems Constitutional: Constitutional: Denies chills, Denies fever(s) and Denies headache(s) Eyes: Eyes: Denies change in vision ENT: Denies dizziness and Denies headache(s) Cardiovascular: Cardiovascular: Denies chest pain, Denies palpitations and Denies dyspnea Respiratory: Respiratory: Denies cough and Denies dyspnea Gastrointestinal: Gastrointestinal: Denies nausea and Denies vomiting Neurologic: Denies dizziness and Denies headache(s) Endocrine: Endocrine: Denies palpitations Exam Const: General: cooperative, comfortable and no acute distress Orientation/consciousness: patient oriented x3 Resp: Effort & Inspection: normal respiratory effort Auscultation: clear to auscultation bilaterally Cardio: Rate: regular rate GI: Inspection: non-distended GI Palp: No abdominal tenderness and Yes Soft to palpation Auscultation: normal bowel sounds : Other: fundus firm Skin: General skin exam: normal color Neuro: General: patient oriented x3 Extrem: General: normal to inspection Psych: Appearance: grossly normal Affect: normal affect Attitude: cooperative
[2024-02-03 14:28] LABS: Rapid Plasma Reagin Non-Reactive (NonReactive)
--- NOTE | 2024-02-03 16:00 | PC.NURSE ---
[id number] Introductions were made, then consulted with patient to assess needs related to . Discussed with mother her?plans to feed?her infant, the?experience so far and concern that infant is sleepy. Reviewed typical behavior the first 24 hours with sleepiness. Educated mother on hand expression and 1/2 tsp of colostrum was spoon fed to the . is sleepy and reluctant to breastfeed at this time at 6 hours old. Resources provided for inpatient and outpatient services with the feeding sheet, mom/baby guide and name written on the communication board. Parents voiced understanding of information and will call if there is a request for assistance. Reported to the Primary RN.
[2024-02-03] MEDS: ACETAMINOPHEN 325 MG TABLET 650 MG PO (16:42)
[2024-02-04 03:30] VITALS: BP 112/67; PULSE 62; RESP 18; TEMP 36.8; O2SAT 100
[2024-02-04 04:39] LABS: Hematocrit 34.3 % (37.0-47.0); Hemoglobin 11.1 g/dL (12.0-15.0)
[2024-02-04] MEDS: MULTIVIT/MIN/PREN/FOL AC/IRON TABLET 1 TAB PO (06:47)
[2024-02-04] MEDS: IBUPROFEN 600 MG TABLET PO ×2 (06:47→16:18)
[2024-02-04] MEDS: MEASLES,MUMPS,RUBELLA VACCINE 0.5 ML VIAL SUB-Q (06:48)
[2024-02-04 07:55] VITALS: BP 109/67; PULSE 64; RESP 18; TEMP 36.5; O2SAT 100
--- NOTE | 2024-02-04 08:02 | PM.OBPNVD ---
OB - PN: Subj Subjective Date/time seen: 02/04/24 08:02 Narrative: PPD#1 Cris reports doing well today. 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 Her pain is controlled. She is tolerating regular diet, voiding, passing gas, and ambulating without issues. She is breast feeding/pumping. She would like to stay one more night. OB - PN: Obj Data Labs 02/04/24 03:29 Labs: Laboratory Results - last 24 hr 02/02/24 02/04/24 18:02 03:29 Hgb 11.1 L Hct 34.3 L RPR Non-reactive OB - PN A/P Assessment and Plan (1) Normal vaginal delivery: Code(s): O80 - Encounter for full-term uncomplicated delivery Status: Acute Plan day: 1 Plan: routine care and discharge home (tomorrow AM) Comments: - Pelvic rest; take meds as prescribed - ER return precautions: fever, n/v/abd pain, bleeding, HTN Time Spent With Patient Time: Total time spent is greater than 50% in coordination of care (as documented) at patient's floor/unit and/or counseling patient: Review of Systems Constitutional: Constitutional: Denies chills, Denies fever(s) and Denies headache(s) Eyes: Eyes: Denies change in vision ENT: Denies dizziness and Denies headache(s) Cardiovascular: Cardiovascular: Denies chest pain, Denies palpitations and Denies dyspnea Respiratory: Respiratory: Denies cough and Denies dyspnea Gastrointestinal: Gastrointestinal: Denies nausea and Denies vomiting Neurologic: Denies dizziness and Denies headache(s) Endocrine: Endocrine: Denies palpitations Exam Const: General: cooperative, comfortable and no acute distress Orientation/consciousness: patient oriented x3 Resp: Effort & Inspection: normal respiratory effort Auscultation: clear to auscultation bilaterally Cardio: Rate: regular rate GI: Inspection: non-distended GI Palp: No abdominal tenderness and Yes Soft to palpation Auscultation: normal bowel sounds : Other: fundus firm Skin: General skin exam: normal color Neuro: General: patient oriented x3 Extrem: General: normal to inspection Psych: Appearance: grossly normal Affect: normal affect Attitude: cooperative
[2024-02-04] MEDS: WITCH HAZEL 40 PADS 1 PAD TOPICAL (08:24)
[2024-02-04] MEDS: DOCUSATE SODIUM 100 MG CAPSULE PO (08:24)
--- NOTE | 2024-02-04 09:25 | WPDANLDPN2 ---
Anes-Prog Note L&D Date/Time: 02/04/24 09:25 Comfortable throughout: labor and delivery Neuraxial method: epidural Epidural/Spinal procedure site: clean & non-tender Neuro status: Neuro function grossly intact. Cardiovascular status: normal Respiratory status: normal Airway patency: baseline Mental status: baseline Post-Op hydration status: normal Vital Signs: Last Vital Signs Temp 36.8 C 02/04/24 03:30 Pulse 62 02/04/24 03:30 Resp 18 02/04/24 03:30 BP 112/67 02/04/24 03:30 Pulse Ox 100 02/04/24 03:30 O2 Del Method Room Air 02/04/24 03:30 Pain score (VAS): 10/16 Post-procedural complaints: none Patient feedback: Patient satisfied with anesthetic care.
--- NOTE | 2024-02-04 11:00 | PC.NURSE ---
[id number] Purposefully rounded to assess for needs related to report received from Primary RN that mothers nipples are sore, gel pads were given to mother and she chose to bottle feed this morning. Discussed with mother her successes, concerns and any questions she has. We reviewed working with the , supporting breast, protecting her nipples with an optimal deep latch, good positioning, and good hand washing. Encouraged understanding the benefits of skin to skin, responding to feeding cues, frequencies of feeding 8-12 times in 24 hours (approximately 2-3 hours), duration of feedings, milk production, intake/output feeding sheet and signs of adequate intake encouraging swallowing at the breast. Nipple care reviewed with optimal latch, good positioning and using clean hands when touching her breast. Protecting the milk supply with frequent, efficient removal of the milk. Educated parents on paced bottle feeding and the risks and benefits of pacifier and bottle use early in the journey so an informed decision can be made to protect her goals. Education was given signs of good intake, storage and use of bottles. (parents used the same bottle for two feedings with 31mls removed after 15ml and 5ml feedings) Resources used to facilitate learning were used from the visual handouts/ tool/ guide/mom and baby guide. Mother voiced understanding of the education shared, to call for assistance if the infant does not latch, discomfort with along with offering services inpatient and outpatient. Reported to the Primary RN.
--- NOTE | 2024-02-04 15:38 | PC.NURSE ---
[id number] Purposefully rounded to assess for needs. Parents are confident with taking care of their second . Reviewed feeding from the start of a feeding to the start of the next feeding rather than from when the feeding was completed. Reminded parents of stimulating to wake and , changing the diaper, S2S, and latching deeply with no pain. Parents voiced understanding to call for assistance if there's pain with latching, difficulty waking infant to breastfeed and feeding approximately every 1-3 hours with only one 4-5 hour stretch of time in a 24 hour period aiming for 8-12 breastfeed sessions watching for long sucks dropping the jaw for swallowing. Mother states some latches are painful and she is encouraged to latch infant deeply along with signs of an effective latch vs non effective latch.
--- NOTE | 2024-02-04 18:15 | PC.NURSE ---
Patient viewed the discharge video Mother & Baby Care, The First Two Weeks . Patient was given the opportunity and encouraged to ask questions. Patient verbalized understanding of information shared and has been given the mother/baby guide for home reference.
[2024-02-04 20:48] VITALS: BP 88/48; PULSE 70; RESP 18; TEMP 36.7; O2SAT 97
--- NOTE | 2024-02-05 06:33 | PM.OBDSVD ---
DS: Admitting Diagnosis Discharge Date 02/05/24 Admitting Diagnosis Induction of labor DS: Discharge Diagnosis Discharge Diagnosis (1) Normal vaginal delivery: Code(s): O80 - Encounter for full-term uncomplicated delivery Status: Acute OB - DS: Summary OB Procedures : Ultrasound OB Procedures Intrapartum: Spontaneous Vag Delivery OB Procedures: : None Peripartum Data Delivery Method: Natural Vaginal Laceration Description: Perineal - 2nd Degree Episiotomy description: None complications: none [place] 1: Gender: Male Disposition of : home Status at Discharge Functional status at discharge: independent ambulation Overall status at discharge: patient is back to baseline Time Spent with Patient Time attestation: Total time spent providing and/or coordinating discharge services: Exam Const: General: cooperative, healthy appearing, comfortable and no acute distress Orientation/consciousness: patient oriented x3 Resp: Effort & Inspection: normal respiratory effort Auscultation: clear to auscultation bilaterally Cardio: Rate: regular rate GI: Inspection: non-distended GI Palp: No abdominal tenderness and Yes Soft to palpation Auscultation: normal bowel sounds : Other: fundus firm Skin: General skin exam: normal color Neuro: General: patient oriented x3 Extrem: General: normal to inspection Psych: Appearance: grossly normal Affect: normal affect Attitude: cooperative DS: Data Data Completed and Pending Labs on day of discharge: Labs from last 24 hours 02/04/24 02/02/24 03:29 18:02 Hgb 11.1 L Hct 34.3 L RPR Non-reactive Discharge Plan Discharge Attending physician on discharge: Mary Carmen Pena Discharging Clinician: Mary Carmen Pena Anticipated Discharge Date/Time: 02/05/24 09:00 Patient Disposition: Home, Self-Care Activity: may shower and pelvic rest Diet: regular Patient Instructions: Vaginal Delivery (DC) Stand Alone Forms: General Discharge Information Follow-up/Referrals: Mary Carmen Pena MD [Physician] - 4 Weeks Discharge Medications: New acetaminophen 325 mg Tablet 650 mg PO Q6H PRN (Reason: Mild Pain (1-3) Or Headache) Qty: 60 0RF docusate sodium 100 mg Capsule 100 mg PO BID PRN (Reason: Constipation) Qty: 60 0RF ibuprofen 600 mg Tablet 600 mg PO Q6H PRN (Reason: Cramping) Qty: 40 0RF Continued Classic 28 mg iron- 800 mcg tablet 1 tablet PO DAILY Date of admission: 02/02/24 17:09 Primary Care Provider: PHYSICIAN,COMMERCIAL [employer]ER Admitting Provider: Mary Carmen Pena Attending physician on admission: Mary Carmen Pena Condition: Stable
[2024-02-05] MEDS: DOCUSATE SODIUM 100 MG CAPSULE PO (07:27)
[2024-02-05] MEDS: IBUPROFEN 600 MG TABLET PO (07:27)
[2024-02-05] MEDS: MULTIVIT/MIN/PREN/FOL AC/IRON TABLET 1 TAB PO (07:27)
[2024-02-05 07:30] VITALS: BP 99/75; PULSE 72; RESP 16; TEMP 37.1; O2SAT 100
--- NOTE | 2024-02-05 17:25 | PC.NURSE ---
[id number] Consulted with mother concerning needs and she shared her ability to independently feed her using bottles, pumping and working with infant on latching. Mother is feeding appropriately for growth of infant and understands stimulating infant to eat if needed, however; is choosing to primarily bottle feed at this time. Infant has had appropriate feedings in the last 24 hours meets the outcomes for weight, output, blood sugar and jaundice at this time. Reinforced understanding of milk production, transition of milk, signs of adequate intake, transition of stool, prevention/relief of engorgement, plugged ducts, mastitis, responsive watching for feeding cues, the different methods of stimulating infant to breastfeed 1-3 hours after the start of the last feeding, community resources, and when to call a provider using the resource of the feeding sheet along with the mom and baby guide. Mother voiced understanding of the information shared, is confident to continue effectively her infant at home, when to call for assistance, denies any additional assistance or education at this time.
[2024-02-06 11:19] VITALS: BP 104/75; PULSE 76; RESP 18; TEMP 36.6; O2SAT 98
== END 2024-02-05 12:00 | disposition home or self-care (01) | DRG 560 ==
LOC: ANHLDR 17:13 → ANHOB2 02-03 06:48
PROVIDERS: Admitting Provider Obstetrics & Gynecology; Visit Provider Obstetrics & Gynecology
DX: O69.81X0 Labor and delivery complicated by cord around neck, without compression, not applicable or unspecified (principal); Z37.0 Single live birth; Z3A.39 39 weeks gestation of pregnancy; O70.1 Second degree perineal laceration during delivery
CPT/HCPCS: 36415; 85014; 85018; 85025; 86592; 86850; 86900; 86901; 90710; A9270; J2590; J2795; J3010; J7120